=== PATIENT | male | born 1950 | race Caucasian/White ===

== ENCOUNTER 2019-03-29 05:55 | Emergency (ER) | payer OTHER ==
[2019-03-29 06:30] VITALS: BMI 24.4
--- NOTE | 2019-03-29 07:17 | PDOC ---
History of Present Illness - General Chief Complaint: Pain, Acute Stated Complaint: LOWER ABDOMINAL PAIN Time Seen by Provider: 03/29/19 07:15 - History of Present Illness Initial Comments: 68yo M with PMH of colon CA s/p chemotherapy/radation/resection, BPH presenting with abdominal pain. Patient states he had a reversal of an ileostomy in April 2018 at [facility]. Patient problems with abdominal pain and constipation since July, such that his doctors were considering another procedure on . He has been taking ducolax and mag citrate. Last bowel movement was yesterday and was a semisolid brown stool without blood. Has not passed any flatulence today. Patient had one episode of bilious nonbloody vomiting last night and today, and also another while in the ED. The abdominal pain is intermittent and rated 10/10, described as a "vise." He does not know what makes his pain better or worse. Patient feels somewhat short of breath because the pain from his abdomen does not allow him to take a full breath. No chest pain. Reports fever and chills. PCP: Dr. Levi Calzada Hem/Onc: Dr. Jojo Goldstein GI: Dr. Marcus Bray Past History - Past Medical History Allergies/Adverse Reactions: Allergies Allergy/AdvReac Type Severity Reaction Status Date / Time milk Allergy Verified 03/29/19 06:25 Home Medications: Ambulatory Orders Bisacodyl [Dulcolax] 5 mg PO PRN 03/29/19 Magnesium Citrate [Citroma -] 150 ml PO PRN 03/29/19 Magnesium Hydroxide [Milk of Magnesia] 400 mg PO PRN 03/29/19 Anemia: No Asthma: No Cancer: Yes (COLORECTAL CA) Cardiac Disorders: No CVA: No COPD: No CHF: No DVT: No Dementia: No Diabetes: No Dialysis: No GI Disorders: Yes Disorders: No HTN: No Hypercholesterolemia: No Kidney Stones: No Liver Disease: No Psychiatric Problems: No Seizures: No Thyroid Disease: No Lung CA: No - Surgical History Abdominal Surgery: Yes (COLON RESECTION, COLOSTOMY X2,) Appendectomy: No Cardiac Surgery: No Cholecystectomy: No Gastric Stapling: No GI Surgery: Yes (COLON RESECTION, COLOSTOMY) Lung Surgery: No Neurologic Surgery: No - Immunization History Immunization Up to Date: No - Suicide/Smoking/Psychosocial Hx Smoking History: Never smoked Have you smoked in the past 12 months: No Information on smoking cessation initiated: No Hx Alcohol Use: No Drug/Substance Use Hx: No Review of Systems - Review of Systems Comments:: Constitutional: +fever, +chills HEENT: no throat pain, no dysphagia Cardiovascular: no chest pain, no palpitations Respiratory: no cough, +shortness of breath Gastrointestinal: +abdominal pain, +nausea Genitourinary: no dysuria, no frequency Musculoskeletal: no myalgia, no arthralgia Skin: no rash, no itching Neurologic: no headache, no weakness *Physical Exam - Vital Signs Last Vital Signs Temp Pulse Resp BP Pulse Ox 98.4 F 92 H 20 135/80 98 03/29/19 06:22 03/29/19 06:22 03/29/19 06:22 03/29/19 06:22 03/29/19 06:22 - Physical Exam Comments: General: Awake, alert, and fully oriented, in no acute distress Head: No signs of trauma Eyes: EOMI, sclera anicteric ENT: Dry mucus membranes Neck: Normal ROM, supple Lungs: Lungs clear, Normal breath sounds Cardio: Regular rhythm, S1 and S2 present Abdomen: Distended, diffuse tenderness to palpation. No guarding, no rebound, no masses. Surgical scar present. Extremities: Normal range of motion, Distal pulses present SKIN: Warm, Dry, normal turgor Neurologic: Cranial nerves II through XII grossly intact. Normal speech ED Treatment Course - LABORATORY CBC & Chemistry Diagram: 03/29/19 08:50 03/29/19 08:50 Medical Decision Making - Medical Decision Making 68yo M with PMH of colon CA s/p chemotherapy/radation/resection, BPH presenting with abdominal pain. DDX including but not limited to bowel obstruction, constipation, colitis, gastroenteritis, gastritis, pancreatitis, constricting neoplasm Patient receives most of his care at [facility], but came here because he lives close by Labs, EKG, CXR, CTAP 03/29/19 07:47 Patient reports he just had a small bowel movement, brown and without blood. 03/29/19 07:57 Per Nurse Bill, Patient is declining IV and labs because he says he needs to get up to go to the bathroom. 03/29/19 08:14 Moved closer to the bathroom. Patient still declining IV and labs. 03/29/19 08:[address] scan with contrast stating that he has a poor reaction with IV contrast. I stated the image quality of a dry CT may be of less utility and patient voiced understanding, requesting to do a CT without contrast first. We will revisit this conversation once his labs are back. 03/29/19 09:16 Patient refused EKG Still endorsing pain, IM Zuly ordered CBC WBC 9.2 K/mm3 (4.0-10.0) 03/29/19 08:50 RBC 4.28 M/mm3 (4.00-5.60) 03/29/19 08:50 Hgb 13.8 GM/dL (11.7-16.9) 03/29/19 08:50 Hct 41.6 % (35.4-49) 03/29/19 08:50 MCV 97.1 fl (80-96) H 03/29/19 08:50 MCH 32.3 pg (25.7-33.7) 03/29/19 08:50 MCHC 33.3 g/dl (32.0-35.9) 03/29/19 08:50 RDW 13.4 % (11.9-15.9) 03/29/19 08:50 Plt Count 162 K/MM3 (134-434) 03/29/19 08:50 MPV 7.5 fl (7.5-11.1) 03/29/19 08:50 Absolute Neuts (auto) 8.2 K/mm3 (1.5-8.0) H 03/29/19 08:50 Neutrophils % 89.2 % (42.8-82.8) H 03/29/19 08:50 Lymphocytes % 3.0 % (8-40) L 03/29/19 08:50 Monocytes % 7.6 % (3.8-10.2) 03/29/19 08:50 Eosinophils % 0.0 % (0-4.5) 03/29/19 08:50 Basophils % 0.2 % (0-2.0) 03/29/19 08:50 Nucleated RBC % 0 % (0-0) 03/29/19 08:50 No anemia or leukocytosis CMP Sodium 140 mmol/L (136-145) 03/29/19 08:50 Potassium 4.3 mmol/L (3.5-5.1) 03/29/19 08:50 Chloride 103 mmol/L (98-107) 03/29/19 08:50 Carbon Dioxide 27 mmol/L (21-32) 03/29/19 08:50 Anion Gap 9 MMOL/L (8-16) 03/29/19 08:50 BUN 33 mg/dL (7-18) H 03/29/19 08:50 Creatinine 1.6 mg/dL (0.55-1.3) H 03/29/19 08:50 Est GFR (CKD-EPI)AfAm 49.85 03/29/19 08:50 Est GFR (CKD-EPI)NonAf 43.01 03/29/19 08:50 Random Glucose 151 mg/dL (74-106) H 03/29/19 08:50 Lactic Acid 1.2 mmol/L (0.4-2.0) 03/29/19 08:50 Calcium 9.3 mg/dL (8.5-10.1) 03/29/19 08:50 Total Bilirubin 1.1 mg/dL (0.2-1) H 03/29/19 08:50 AST 15 U/L (15-37) 03/29/19 08:50 ALT 19 U/L (13-61) 03/29/19 08:50 Alkaline Phosphatase 85 U/L (45-117) 03/29/19 08:50 Total Protein 7.6 g/dl (6.4-8.2) 03/29/19 08:50 Albumin 3.9 g/dl (3.4-5.0) 03/29/19 08:50 Lipase 122 U/L (73-393) 03/29/19 08:50 Cr is 1.6, CT scan changed to without contrast Lipase nl Lactate normal 03/29/19 09:41 Patient still complaining of pain Another 4mg morphine ordered CT shows what looks like a large bowel obstruction Awaiting official radiology report Possible transfer to [facility] 03/29/19 10:[address] Goldstein, patient's surgeon. She states patient has refused care/ treatment under her management multiple times. I discussed the concern for large bowel obstruction, and the decision was made to transfer the patient to [facility] where his care is usually managed. He may benefit from a colonoscopy and possible stent placement there. Dr. Goldstein said she will initiate the transfer. Awaiting callback from transfer center. 03/29/19 11:17 Patient consented to transfer. Paperwork signed. Facesheet faxed to [phone] 03/29/19 11:38 Dr. Jojo Goldstein is the accepting physician Likely transport in one hour 03/29/19 12:19 Patient left the department *DC/Admit/Observation/Transfer Diagnosis at time of Disposition: Large bowel obstruction - Discharge Dispostion Disposition: TRANSFER ACUTE CARE/OTHER HOSP Condition at time of disposition: Guarded - Referrals - Patient Instructions - Post Discharge Activity - Transfer to Acute Care Facility Receiving Facility: [facility] Accepting Physician:: Jojo Goldstein MD
[2019-03-29] MEDS ORDERED: morphine CARPU-JECT 4 MG/1 ML DISP.SYRIN IVPUSH ONE ×2 (07:45→10:43)
[2019-03-29] MEDS ORDERED: ONDANSETRON 4 MG/2 ML VIAL IVPUSH ONE (07:45)
[2019-03-29] MEDS ORDERED: SODIUM CHLORIDE 1,000 ML IV STA (07:45)
--- NOTE | 2019-03-29 07:58 | PDOC ---
Attending Attestation - Resident Resident Name: Nahomi Wolff - ED Attending Attestation I have performed the following: I have examined & evaluated the patient, The case was reviewed & discussed with the resident, I agree w/resident's findings & plan, Exceptions are as noted
[2019-03-29] MEDS ORDERED: morphine SULFATE 4 MG/ML VIAL ONE ×2 (09:05→10:46)
[2019-03-29] MEDS ORDERED: ONDANSETRON 4 MG/2 ML VIAL ONE (09:05)
[2019-03-29 09:14] LABS: BASO % 0.2 % (0-2.0); HEMATOCRIT 41.6 % (35.4-49); HEMOGLOBIN 13.8 GM/dL (11.7-16.9); MCH 32.3 pg (25.7-33.7); MCHC 33.3 g/dl (32.0-35.9); MEAN CELL VOLUME 97.1 fl (80-96); MEAN PLT VOLUME 7.5 fl (7.5-11.1); MONO % 7.6 % (3.8-10.2); NEUT % 89.2 % (42.8-82.8); PLATELET COUNT 162 K/MM3 (134-434); RBC 4.28 M/mm3 (4.00-5.60); RDW 13.4 % (11.9-15.9); WHITE BLOOD COUNT 9.2 K/mm3 (4.0-10.0)
[2019-03-29 09:30] LABS: INR 1.09 (0.83-1.09); PROTHROMBIN TIME (PATIENT) 12.9 SEC (9.7-13.0)
[2019-03-29 09:33] LABS: ACTIVATED PTT 29.7 SECONDS (25.2-36.5)
[2019-03-29 09:35] LABS: ALBUMIN 3.9 g/dl (3.4-5.0); BILIRUBIN,TOTAL 1.1 mg/dL (0.2-1); CALCIUM 9.3 mg/dL (8.5-10.1); CREATININE 1.6 mg/dL (0.55-1.3); POTASSIUM 4.3 mmol/L (3.5-5.1); TOT PROT 7.6 g/dl (6.4-8.2)
[2019-03-29] MEDS ORDERED: DICYCLOMINE HCL 20 MG/2 ML AMPUL IM ONE (09:40)
--- NOTE | 2019-03-29 10:13 | PDOC ---
Documentation entered by Sona Choi SCRIBE, acting as scribe for Alia Rivera DO. Alia Rivera DO: This documentation has been prepared by the Jimbo allen Nirvannie, SCRIBE, under my direction and personally reviewed by me in its entirety. I confirm that the documentation accurately reflects all work, treatment, procedures, and medical decision making performed by me. Attending Attestation - Resident Resident Name: Nahomi Wolff - ED Attending Attestation I have performed the following: I have examined & evaluated the patient, The case was reviewed & discussed with the resident, I agree w/resident's findings & plan - HPI HPI: 03/29/19 09:53 The patient is a 68 year old male, with a significant past medical history of colon CA (s/p chemotherapy,radiation,resection, colostomy (s/p reversal)), and chronic constipation, BPH, who presents to the emergency department with, 1 day of abdominal pain described as a waxing and waning cramping with associated diarrhea (x3) and vomiting (NBNB 1 episode yesterday and 1 today). Patient notes he felt constipated despite using dulcolax and passing BMs thus, he drank a half bottle of Magnesium Citrate (@ GI doctors request).He notes when his symptoms onset he called his GI doctor and was advised to report to the ED for further evaluation to rule out obstruction. Patient is pending an outpatient colonoscopy . He denies any recent fevers, chills, headache or dizziness. He denies any recent chest pain or shortness of breath. He denies any recent dysuria, frequency, urgency or hematuria. Allergies: Milk Primary Care Physician/GI: Sonia Murphy - Physicial Exam PE: 03/29/19 09:53 Constitutional: Awake, alert, oriented. No acute distress. Head: Normocephalic. Atraumatic Eyes: PERRL. EOMI. Conjunctivae are not pale. ENT: Mucous membranes are moist and intact. Posterior pharynx without exudate or erythema. Uvula midline. Neck: Supple. Full ROM. No lymphadenopathy. Cardiovascular: Regular rate. Regular rhythm. S1, S2 regular. Distal pulses are 2+ and symmetric. Pulmonary/Chest: Speaking in full sentences without discomfort. No evidence of respiratory distress. Clear to auscultation bilaterally No wheezing, rales or rhonchi. +Abdominal: Distended, diffuse abdominal discomfort. Hyperactive bowel sounds. No rebound, guarding or rigidity. No organomegaly. No palpable masses. Back: No CVA tenderness. Musculoskeletal: No edema. No cyanosis. No clubbing. Full range of motion in all extremities. No calf tenderness. Radial/pedal pulses are intact and 2+ bilaterally Skin: Skin is warm and dry. No petechiae. No purpura. Neurological: Alert and oriented to person, place, and time. Cranial nerves II -XII are grossly intact. Normal speech. Strength is grossly symmetric. No sensory deficits. Psychiatric: Good eye contact. Normal interaction, affect and behavior. - Medical Decision Making 03/29/19 10:03 I, Dr. Alia Rivera, DO, attest that this document has been prepared under my direction and personally reviewed by me in its entirety. I further attest, that it accurately reflects all work, treatment, procedures and medical decision -making performed by me. 03/29/19 10:03 a/p: 68yo male with hx of colon ca s/p colonic [id number] of ostomy in april (all docs at [facility]) with worsening constipation x few days -n/v this AM -has been using dulcolax daily, saw gi 3 days ago and is scheduled for colonoscopy -felt constipated, distended starting yesterday and crampy feeling in abd -took 1/2 bottle of mag citrate last night at 9pm - started having formed now loose bm -vomiting today as well -feels he may be obstructed, feels crampy pain -will send labs, ct abd/pelvis -will give ivf hydration -will monitor and reassess 03/29/19 11:30 pt refused ekg distended colon on ct call placed to Dr. Goldstein who requests transfer to [facility] for eval. Dr. Goldstein is pts surgeon. resident discussed the case with Dr. Goldstein. Filled out transfer paperwork. discussed transfer with the patient. 03/29/19 11:42 pt signed consent for transfer 03/29/19 12:16 Dr. Jojo Goldstein is accepting physician
[2019-03-29 12:36] VITALS: BP 159/80; PULSE 82; TEMP 98.5
== END 2019-03-29 12:51 | disposition short-term general hospital (02) ==
LOC: JER 05:55
PROC: 3E033GC Introduction of Other Therapeutic Substance into Peripheral Vein, Percutaneous Approach (ICD-10-PCS; principal; 2019-03-29)
PROC: 3E033NZ Introduction of Analgesics, Hypnotics, Sedatives into Peripheral Vein, Percutaneous Approach (ICD-10-PCS; 2019-03-29)
PROC: 3E033GC Introduction of Other Therapeutic Substance into Peripheral Vein, Percutaneous Approach (ICD-10-PCS; 2019-03-29)
PROC: 3E023GC Introduction of Other Therapeutic Substance into Muscle, Percutaneous Approach (ICD-10-PCS; 2019-03-29)
DX: K56.699 Other intestinal obstruction unspecified as to partial versus complete obstruction (principal)
CPT/HCPCS: 36415; 71045-TC-FY; 74176-TC; 80053; 83605; 83690; 85025; 85610; 85730; 86850; 86900; 86901; 96372; 96374; 96375; 96376; 99285-25; J7030